=== PATIENT | female | born 1970 | race Caucasian/White ===

== ENCOUNTER → 2016-12-30 | Outpatient (CLI) | payer OTHER ==
--- NOTE | ~2016-12-30 | EKG ---
[place] [place] [address] [facility] [place] [address] ELECTROCARDIOGRAM REPORT Name: HILTON DURAN Room #: [facility] [id number] Admission: 12/30/16 Attend Phys: Toby Gallardo MD, F Discharge: Date of : 72 Report #: [id number] THIS REPORT FOR: //name// [facility] Test Date: 2016-12-30 Test Time: 12:16:27 Pat Name: HILTON DURAN Department: Room: Gender: F It Administrator: Krys LUNA : 1970 Requested By: Toby Gallardo Order Number: [id number] MD: Sammy Rodas Measurements Intervals [place] Rate: 72 P: 14 MD: 118 QRS: 33 QRSD: 79 T: 39 QT: 392 QTc: 430 Interpretive Statements Sinus rhythm No significant abnormality No previous ECG available for comparison Electronically Signed On 12-31-2016 8:40:21 CDT by Sammy Rodas [email or web address] <ELECTRONICALLY SIGNED> By: Sammy Rodas MD, [facility] 12/31/16 0840 1216 1216 Sammy Rodas MD, FACC /EPI
[2016-12-30 11:42] LABS: ABSOLUTE NEUTROPHILS 6.4 thou/uL (1.4-8.2); BASOPHILS 0.8 % (0.0-2.0); EOSINOPHILS 2.5 % (0.0-3.0); HEMATOCRIT 41.2 % (37.0-47.0); HEMOGLOBIN 13.7 gm/dL (12.0-15.0); LYMPHOCYTES 20.4 % (24.0-44.0); MCH 31.2 pg (26.0-34.0); MCHC 33.2 g/dL (28.0-37.0); MCV 93.9 fL (80.0-100.0); MONOCYTES 5.6 % (1.0-8.0); PLATELET COUNT 253 thou/uL (150-400); POLYS 70.7 % (36.0-66.0); RBC 4.39 mil/uL (4.20-5.00); RDW 14.3 % (10.5-14.5)
[2016-12-30 11:43] LABS: MANUAL DIFF NO
[2016-12-30 11:52] LABS: CALCIUM 8.8 mg/dL (8.5-10.1); CREATININE 0.7 mg/dL (0.6-1.0); POTASSIUM 4.2 mmol/L (3.5-5.1)
[2016-12-30 11:58] LABS: ALBUMIN 3.8 g/dL (3.4-5.0); TOTAL BILIRUBIN 0.3 mg/dL (<0.1-1.0); TOTAL PROTEIN 7.5 g/dL (6.4-8.2)
== END ==
LOC: LABMALL 11:11
PROVIDERS: Surgery
DX: E11.9 Type 2 diabetes mellitus without complications (principal); E66.01 Morbid (severe) obesity due to excess calories

== ENCOUNTER 2017-01-16 06:04 | Inpatient (IN) | payer OTHER ==
[~2017-01-16] VITALS: Ht 172.7 cm; Wt 118.4 kg
--- NOTE | ~2017-01-16 | S ---
[facility] [place] [address] SURGICAL PATH RPT PROCEDURE Name: KAREN DURAN Room #: 447-P DIS IN M.R.#: [id number] Admission: 01/16/17 Date of : 72 Discharge: 01/17/17 Report #: [id number] Path Case #: [id number] PATHOLOGY REPORT COLLECTION DATE: 01/16/2017 RECEIVED DATE: 01/16/2017 SUBMITTING PHYS: Dr. Toby Gallardo OTHER PHYS: Dr. Alpesh York SPECIMEN(S) RECEIVED: A.Gastric sleeve * * * * * * * * * * * * FINAL DIAGNOSIS: Gastric sleeve, partial sleeve gastrectomy: - No diagnostic abnormalities present, history of morbid obesity. (IUV:pit; d/t: 01/20/2017) PATHOLOGIST: Andreea Herrera M.D. REPORT ELECTRONICALLY SIGNED BY: Andreea Herrera M.D. DATE/TIME: 01/20/2017 15:47 * * * * * * * * * * * * GROSS PATHOLOGY: The specimen is received in formalin, labeled "Karen Duran gastric sleeve". Received is a partial gastrectomy specimen with a stapled margin of resection measuring 24.2 x 5.1 x 2.2 cm in greatest dimensions. The serosal surface is pink-carrera, smooth and glistening in appearance. Opening the specimen reveals a light carrera mucosa with minimal architectural folds. No distinct nodules or lesions are noted grossly. The specimen is submitted representatively in cassette A1 through A3. (CAA; 01/17/2017) CLINICAL HISTORY: Morbid obesity INITIAL CPT CODE(S): A; 82400 Professional services performed by [facility] at [facility] [address], [place] [address] Technical services performed by [facility] at [address] [place] [id number]. [facility] [address] [place] [address] SURGICAL PATH RPT PROCEDURE Name: KAREN DURAN Room #: 447-P [facility] IN ..#: [id number] Admission: 01/16/17 Date of : 72 Discharge: 01/17/17 Report #: [id number] Path Case #: [id number] [facility] [address] [address] PHONE: [phone] DIRECTOR: Cristi Sarabia M.D. * * * END OF REPORT * * *
--- NOTE | ~2017-01-16 | O ---
[facility] [place] [address] OPERATIVE REPORT Name: HILTON DURAN Room #: 447-P [facility] IN M.R.#: [id number] Admission: 01/16/17 Attend Phys: Toby Gallardo MD, F Discharge: 01/17/17 Date of : 72 Report #: [id number] THIS REPORT FOR: //name// CC: KARISHMA YOSEPH Gallardo DATE OF SERVICE: 01/16/2017 SURGEON: Toby Gallardo MD. GAUGE MACHINE OPERATOR: Alpesh York MD. PREOPERATIVE DIAGNOSES: 1. Morbid obesity (body mass index of 40.3). 2. Arthritis. 3. Depression. 4. Diabetes mellitus. 5. Lumbago. POSTOPERATIVE DIAGNOSES: 1. Morbid obesity (body mass index of 40.3). 2. Arthritis. 3. Depression. 4. Diabetes mellitus. 5. Lumbago. PROCEDURE: Laparoscopic sleeve gastrectomy with EGD. ANESTHESIA: General endotracheal anesthesia and local anesthetic. ESTIMATED BLOOD LOSS: 5 mL. SPECIMEN: Lateral stomach. COMPLICATIONS: None appreciated. INDICATIONS FOR PROCEDURE: This is a 46-year-old female patient, who stands 5 feet 8 inches, weighing 265 pounds. At her last visit, it was a BMI of 40.3. She has had difficulty with her weight since high school, and her weight has significantly increased after she developed a pinched nerve in her spine, approximately one year ago. She underwent a decompressive operation, with no significant loss in weight with the increased activity. She has tried numerous weight loss programs and plans with limited weight loss success. Any amount of weight she has lost, she has quickly regained plus additional weight after stopping the modality. Associated comorbidities include type 2 diabetes mellitus, arthritis, bulging disks, sciatica, and depression as well as back [facility] [address] [place] [address] OPERATIVE REPORT Name: RENEE,HILTON Paulo Room #: 447-P DIS IN .R.#: [id number] Admission: 01/16/17 Attend Phys: Toby Gallardo MD, F Discharge: 01/17/17 Date of : 72 Report #: [id number]. She has been cleared from a multidisciplinary standpoint and presents today for bariatric surgery in the form of laparoscopic sleeve gastrectomy with EGD. OPERATIVE FINDINGS: On EGD, the patient's esophagus was normal down the GE junction and Z-line measured at 38 cm from the teeth. The stomach and duodenum to the third portion were normal without polyps, diverticula, masses, or ulcers. On retroflexion of the scope within the antrum of the stomach, there was no evidence for hiatal hernia. Laparoscopically, the patient had an enlarged stomach. The liver, small bowel, and colon in the surrounding area appeared otherwise normal. The gastric sleeve staple line was located at 1 cm lateral to the GE junction. At least 2.5-3 cm of distance was present between the incisura and staple line. The distal staple line was located 4 cm proximal to the pylorus. There was no evidence for staple line leak on leak test, whereby the sleeve was insufflated with carbon dioxide using the gastroscope, immediately after applying Tisseel to the staple line. No bubbles were seen within the Tisseel. Endoluminally, no bleeding was seen within the sleeve. At the conclusion of the operation, the sponge, needle, and instrument counts were correct. No other significant intraabdominal pathology was identified. The excised stomach held 1000 mL of fluid on the back table. DESCRIPTION OF PROCEDURE IN DETAIL: After the benefits and risks of the procedure were explained to the patient which include but are not limited to risks of bleeding, infection, postoperative pain, postoperative expectations and risks of DVT and pulmonary embolus, informed consent was obtained. The patient was identified in the preoperative holding area. The patient was given IV antibiotics as documented in the chart in line with SCIP protocol. The patient was then taken to the operating room and was placed in the supine position. The patient was given IV sedation and was intubated without incident. SCDs were placed on the patient's bilateral lower extremities prior to induction of anesthesia. The patient had been placed in the modified low lying dorsal lithotomy position in stirrups on the beanbag. The beanbag and the patient were taped to the bed to secure the patient. A time-out was then performed to correctly identify the patient and procedure. An orogastric tube was placed by anesthesia. A bite block was placed and the fiberoptic EGD scope was passed into the patient's oropharynx, down the esophagus, into the stomach, and into the third portion of the duodenum. Findings are as noted above. The scope was slowly withdrawn into the antrum and the scope was retroflexed. The hiatus was visualized. The scope was then straightened and the end of the gastroscope was placed at the pylorus. The stomach was decompressed with the scope. The patient's abdomen was then prepped and draped in the standard sterile fashion with surgical prep. Local anesthetic was infiltrated into the skin and [address] [address] OPERATIVE REPORT Name: HILTON DURAN Room #: 447-P DIS IN M.R.#: [id number] Admission: 01/16/17 Attend Phys: Toby Gallardo MD, F Discharge: 01/17/17 Date of : 72 Report #: [id number] subcutaneous tissue in the left supraumbilical area where a sharp #15-blade scalpel was used to make a 5-mm incision. The 5-mm Visiport was placed intraperitoneally with the 5-mm 0-degree angled laparoscope. Pneumoperitoneum was then achieved with insufflation of carbon dioxide to 15 mmHg. A 5-mm 30-degree angled laparoscope was then inserted. The 15-mm port was placed in the right supraumbilical area after local anesthetic was infiltrated into the skin and subcutaneous tissue and an appropriately sized incision was made. Two additional 5 mm ports were placed in the left abdomen after local anesthetic was infiltrated and incisions were made. All ports were placed under direct visualization. The patient was then placed in reverse Trendelenburg position. Local anesthetic was infiltrated into the skin and subcutaneous tissue in the subxiphoid area and a 5-mm incision was made through which a 5-mm obturator was passed into the abdominal cavity through the fascia to create a passageway for the Tate liver retractor. The retractor was placed to retract the liver anteriorly. The retractor was held in place with the [employer] Chief Scientist apparatus. All abdominal adhesions were then taken down with blunt dissection, sharp dissection and judicious use of the ultrasonic dissector. The gastrosplenic ligament and short gastric vessels were then divided using the ultrasonic dissector with appropriate traction. Bleeding points were made hemostatic with the ultrasonic dissector. Dissection was carried proximally up to the left lisa of the diaphragm. The distal end point of dissection was then measured at 4 cm proximal to the pylorus. The short gastric vessels and gastrocolic ligaments were dissected to that level. The stomach was then rotated medially to visualize any posterior attachments/adhesions to the stomach. The adhesions were dissected with a combination of sharp dissection and use of the ultrasonic dissector. The endoscope was then slightly withdrawn to place it along the lesser curvature of the stomach. Suction was applied to the orogastric tube which was then removed, leaving the endoscope in place as a 34-Romanian bougie. The gastric sleeve was then created. Two black loads of the powered endoscopic MAIRA stapler buttressed with Pamela-Strips were used to staple and divide the stomach 4 cm proximal to the pylorus. Additional green loads buttressed with Pamela-strips were used to staple off the remainder of the stomach using the endoscope as the bougie. Care was taken to ensure that greater than 3 cm of space was present between the incisura and the staple line. The stomach was fully transected and placed in the right upper quadrant of the abdomen for later removal. The staple line of the sleeve was then clipped with Hemoclips along portions of the staple line to provide hemostasis. Tisseel was applied to the entire length of the staple line with the Duplospray aerosolizer to fully ensure hemostasis. A leak test was performed next. The sleeve was insufflated with the endoscope which was slowly withdrawn. No air bubbles were seen in the Tisseel laparoscopically. Endoluminally, no bleeding was seen. The stomach was fully [address] [address] OPERATIVE REPORT Name: HILTON DURAN Room #: 447-P [facility] IN .R.#: [id number] Admission: 01/16/17 Attend Phys: Toby Gallardo MD, F Discharge: 01/17/17 Date of : 72 Report #: [id number] decompressed and the scope was slowly withdrawn. The Tate liver retractor was then loosened from the [employer] Chief Scientist apparatus and it was removed without difficulty. The stomach was then removed from the patient's body through the 15-mm port under direct visualization. A small amount stretching of the fascia was required to create an opening large enough for removal of the stomach. After its removal, the 15-mm port site fascial opening was closed with an 0-PDS suture using the Will-Delmar laparoscopic fascial closure device. All ports were removed after the abdominal cavity was desufflated. The fascial suture was tied. Interrupted subcuticular 4-0 Monocryl sutures and Dermabond were used to close all skin incisions. The patient tolerated the procedure well. The patient was awakened, extubated and taken to the recovery room in stable condition with no apparent intraoperative complications. <ELECTRONICALLY SIGNED> By: Toby Gallardo MD, FACS 01/17/17 2038 1137 1342 Toby Gallardo MD, FACS /nt
[~2017-01-16 06:04] MED LIST: CENTRUM SILVER1 EAC4 PO; JANUVIA100 MG PO; MINERALS PO; TRULICITY0.75 MG/0. SQ; VENLAFAXINE HC150 M1 PO
[2017-01-16 08:30] VITALS: BP 140/78
[2017-01-16 16:00] VITALS: BP 140/74
[2017-01-16 19:33] VITALS: BP 109/51
[2017-01-17 05:36] VITALS: BP 129/59
[2017-01-17 06:24] LABS: ABSOLUTE NEUTROPHILS 13.3 thou/uL (1.4-8.2); BASOPHILS 0.5 % (0.0-2.0); EOSINOPHILS 0.2 % (0.0-3.0); HEMATOCRIT 35.4 % (37.0-47.0); HEMOGLOBIN 11.5 gm/dL (12.0-15.0); LYMPHOCYTES 11.5 % (24.0-44.0); MCH 30.9 pg (26.0-34.0); MCHC 32.5 g/dL (28.0-37.0); MCV 94.9 fL (80.0-100.0); MONOCYTES 5.3 % (1.0-8.0); PLATELET COUNT 234 thou/uL (150-400); POLYS 82.5 % (36.0-66.0); RBC 3.73 mil/uL (4.20-5.00); RDW 14.8 % (10.5-14.5); WBC 16.1 thou/uL (4.0-11.0)
[2017-01-17 06:26] LABS: MANUAL DIFF NO
[2017-01-17 06:31] LABS: CREATININE 0.9 mg/dL (0.6-1.0)
[2017-01-17 08:00] VITALS: BP 130/64
[2017-01-17 14:45] VITALS: BP 130/64
== END 2017-01-17 15:47 | disposition home or self-care (01) | DRG 621 ==
LOC: OR 06:04 → TBA 06:04 → OR 13:19 → 4S 13:19 → OR 13:27 → 4S 01-17 15:47
PROVIDERS: Surgery
PROC: 0DJ08ZZ Inspection of Upper Intestinal Tract, Via Natural or Artificial Opening Endoscopic (ICD-10-PCS; principal; 2017-01-16)
PROC: 0DB64Z3 Excision of Stomach, Percutaneous Endoscopic Approach, Vertical (ICD-10-PCS; principal; 2017-01-16)
DX: E66.01 Morbid (severe) obesity due to excess calories (principal); F32.9 Major depressive disorder, single episode, unspecified; E11.9 Type 2 diabetes mellitus without complications; M54.5 Low back pain; M19.90 Unspecified osteoarthritis, unspecified site; Z68.41 Body mass index [BMI] 40.0-44.9, adult; Z91.040 Latex allergy status; Z91.048 Other nonmedicinal substance allergy status; Z86.32 Personal history of gestational diabetes; Z90.711 Acquired absence of uterus with remaining cervical stump; Z83.3 Family history of diabetes mellitus; Z81.1 Family history of alcohol abuse and dependence; Z82.61 Family history of arthritis; Z80.9 Family history of malignant neoplasm, unspecified
CPT/HCPCS: 10195; 50010; 50101; 50222; 50249; 50386; 50555; 50739; 50740; 50962; 51437; 51489; 52182; 52265; 53307; 53311; 54022; 54118; 55245; 56462; 56525; 56526; 57092; 62110; 62900; 70005